=== PATIENT | female | born 1990 | race Caucasian/White ===

== ENCOUNTER 2016-08-18 16:25 | Emergency (ER) | payer OTHER ==
[2016-08-18 16:39] VITALS: BP 120/69; BMI 31.3
[2016-08-18] MEDS ORDERED: IBUPROFEN 400 MG TABLET (FP) PO ONE ×2 (17:18→17:23)
--- NOTE | 2016-08-18 17:54 | PDOC ---
History of Present Illness - General Chief Complaint: Cold Symptoms Stated Complaint: FEVER/SORE THROAT/BODY ACHE Time Seen by Provider: 08/18/16 17:18 History Source: Patient - History of Present Illness Timing/Duration: reports: yesterday Associated Symptoms: reports: earache, fever/chills, headache, muscle aches, sore throat. denies: cough, dizziness, facial pain, nasal congestion, shortness of breath, wheezing Past History - Past Medical History Allergies/Adverse Reactions: Allergies Allergy/AdvReac Type Severity Reaction Status Date / Time No Known Allergies Allergy Verified 08/18/16 16:39 Home Medications: Ambulatory Orders NK [No Known Home Medication] 08/18/16 Asthma: Yes Diabetes: No HTN: No Hypercholesterolemia: No Kidney Stones: No Liver Disease: No Suicide Attempt (Hx): No - Surgical History Abdominal Surgery: No - Reproductive History (#): 3 Para: 1 Cervical CA: No Dysfunctional Uterine Bleeding: No Ectopic : Yes Endometrial CA: No Polycystic Ovaries: No Therapeutic (s) & number: Yes (EPTOPIC) Tubal Ligation: No - Immunization History Immunization Up to Date: No - Psycho/Social/Smoking Cessation Hx Anxiety: No Suicidal Ideation: No Smoking Status: No Smoking History: Never smoked Have you smoked in the past 12 months: No Number of Cigarettes Smoked Daily: 0 Information on smoking cessation initiated: No Hx Alcohol Use: No Drug/Substance Use Hx: No Substance Use Type: None Hx Substance Use Treatment: No Respiratory Specific PMHX - Complaint Specific PMHX Angina: No Bronchitis: Yes Pneumonia: No Pulmonary Embolus: No TB (Tuberculosis): No Review of Systems - Review of Systems Constitutional: Yes: Fever, Malaise HEENTM: Yes: Ear Pain, Throat Pain Respiratory: No: Cough, Shortness of Breath, Wheezing ABD/GI: No: Diarrhea, Nausea, Vomiting Integumentary: No: Rash *Physical Exam - Vital Signs Last Vital Signs Temp Pulse Resp BP Pulse Ox 102.7 F H 130 H 18 120/69 98 08/18/16 16:37 08/18/16 16:37 08/18/16 16:37 08/18/16 16:37 08/18/16 16:37 - Physical Exam General Appearance: Yes: Appropriately Dressed, Other (ill appearing) HEENT: positive: Normal Voice Neck: positive: Supple. negative: Lymphadenopathy (R), Lymphadenopathy (L) Respiratory/Chest: positive: Lungs Clear, Normal Breath Sounds. negative: Respiratory Distress Cardiovascular: positive: S1, S2, Tachycardia Gastrointestinal/Abdominal: positive: Soft. negative: Tender Integumentary: positive: Dry, Warm Neurologic: positive: Fully Oriented, Alert, Normal Mood/Affect, Other (no e/o meningismus) ED Treatment Course - LABORATORY CBC & Chemistry Diagram: 08/18/16 18:50 08/18/16 18:50 - Medications Given in the ED: ED Medications Discontinued Medications Generic Name Dose Route Start Last Admin Trade Name Freq PRN Reason Stop Dose Admin Ibuprofen 800 mg 08/18/16 17:18 08/18/16 17:27 Motrin - PO 08/18/16 17:19 800 mg ONCE ONE Administration Medical Decision Making - Medical Decision Making 08/18/16 17:52 26-year-old male, denies any past medical history, here with malaise with body aches, diffuse headache, sore throat, left ear pain and fever that started suddenly yesterday. Taking Motrin and Tylenol with some improvement. No cough , sob, vomiting, diarrhea, rash, neck stiffness, photophobia or AMS as per boyfriend who is at bedside. No sick contacts or recent travel. Patient appears ill and febrile to 102 with tachycardia, rest of exam unremarkable. Most likely viral, rule out influenza, less likely meningitis. Antipyretic/ pain control in ED and reassess 08/18/16 17:53 08/18/16 18:37 08/18/16 18:43 Fever increased from 102 to 103 despite motrin in ED. IV placed w/ IVF and tylenol administration, labs sent. Will reassess. 08/18/16 18:59 08/18/16 19:01 08/18/16 20:14 Strep, flu and labs negative. Pt reports significant improvement in symptoms with improvement of vitals. Stable for discharge at this time with supportive treatment. Reasons to return discussed with patient 08/18/16 20:16 *DC/Admit/Observation/Transfer Diagnosis at time of Disposition: Viral syndrome - Discharge Dispostion Disposition: HOME Condition at time of disposition: Improved - Patient Instructions Printed Discharge Instructions: DI for Viral Syndrome Additional Instructions: Rest, drink plenty of fluids and take Tylenol or Motrin as needed for pain and/ or fever - Post Discharge Activity Work/School Note: Back to Work
[2016-08-18] MEDS ORDERED: ACETAMINOPHEN 325 MG TABLET (FP) PO ONE (18:26)
[2016-08-18] MEDS ORDERED: SODIUM CHLORIDE 1,000 ML IV STA (18:27)
[2016-08-18] MEDS ORDERED: ACETAMINOPHEN 325 MG TABLET (FP) ONE (18:44)
[2016-08-18] MEDS ORDERED: METOCLOPRAMIDE HCL INJECTION 10 MG/2 ML VIAL IVPB ONE (18:48)
[2016-08-18 18:55] LABS: URINE APPEARANCE CLEAR; URINE BILIRUBIN NEGATIVE (NEGATIVE); URINE BLOOD NEGATIVE (NEGATIVE); URINE COLOR LTYELLOW; URINE GLUCOSE (UA) NEGATIVE (NEGATIVE); URINE KETONE NEGATIVE (NEGATIVE); URINE NITRITE NEGATIVE (NEGATIVE); URINE PROTEIN NEGATIVE (NEGATIVE); URINE UROBILINOGEN NEGATIVE E.U./dl (0.2-1.0)
[2016-08-18 18:57] LABS: URINE LEUK ESTERASE TRACE (NEGATIVE)
[2016-08-18 18:59] LABS: URINE MUCUS RARE; URINE RBC 4 /hpf (0-3); URINE WBC 2 /hpf (3-5)
[2016-08-18 19:02] LABS: BASOPHIL 0.5 % (0-2.0); EOSINOPHIL 0.3 % (0-4.5); MCH 28.1 pg (25.7-33.7); MCHC 33.1 g/dl (32.0-36.0); MEAN PLT VOLUME 8.3 fl (7.5-11.1); NEUTROPHILS 86.4 % (42.8-82.8); PLATELET COUNT 259 K/MM3 (134-434); RDW 13.8 % (11.6-15.6); WHITE BLOOD COUNT 10.1 K/mm3 (4.0-10.0)
[2016-08-18] MEDS ORDERED: METOCLOPRAMIDE HCL INJECTION 10 MG/2 ML VIAL ONE (19:03)
[2016-08-18 19:30] LABS: ALBUMIN 3.8 g/dl (3.4-5.0); ALK PHOS 67 U/L (45-117); ANION GAP 9 (8-16); BILIRUBIN,TOTAL 0.3 mg/dL (0.2-1.0); CALCIUM 8.3 mg/dL (8.5-10.1); CO2 23 mmol/L (21-32); COCKROFT - GAULT 130.8065; CREATININE 0.7 mg/dL (0.55-1.02); GLUCOSE,RANDOM 88 mg/dL (74-106); SGOT/AST 9 U/L (15-37); SGPT/ALT 18 U/L (12-78); TOT PROT 7.1 g/dl (6.4-8.2)
[2016-08-18 19:54] VITALS: PULSE 100; TEMP 99.1
== END 2016-08-18 20:33 | disposition home or self-care (01) ==
LOC: JERFT 16:25
PROC: 3E0337Z Introduction of Electrolytic and Water Balance Substance into Peripheral Vein, Percutaneous Approach (ICD-10-PCS; principal; 2016-08-18)
PROC: 3E033GC Introduction of Other Therapeutic Substance into Peripheral Vein, Percutaneous Approach (ICD-10-PCS; 2016-08-18)
DX: B34.9 Viral infection, unspecified (principal)
CPT/HCPCS: 36415; 71020-TC; 80053; 81003; 81015; 84703; 85025; 87040; 87070; 87430; 87804; 99281-25

== ENCOUNTER 2018-01-06 17:45 | Inpatient (IN) | payer OTHER ==
[2018-01-06] MEDS ORDERED: AMPICILLIN - 2 GM in SODIUM CHLORIDE 100 ML IVPB ONE (18:00)
[2018-01-06] MEDS: ELECTROLYTE-148 SOLN 1,000 ML IV SCH ×2 (18:00→23:29)
[2018-01-06 18:13] VITALS: BMI 34.0
[2018-01-06] MEDS ORDERED: BUTORPHANOL TARTRATE 1 MG/ML VIAL IVPUSH ONE (18:30)
[2018-01-06] MEDS ORDERED: PROMETHAZINE HCL 25 MG/1 ML VIAL IVPB ONE (18:30)
[2018-01-06] MEDS ORDERED: BUTORPHANOL TARTRATE 1 MG/ML VIAL ONE (19:06)
[2018-01-06] MEDS ORDERED: PROMETHAZINE HCL 25 MG/1 ML VIAL ONE (19:06)
[2018-01-06 19:31] LABS: BASO % 0.4 % (0-2.0); EOS % 0.2 % (0-4.5); HEMATOCRIT 24.7 % (32.4-45.2); HEMOGLOBIN 8.1 GM/dL (10.7-15.3); LYMPH % 21.7 % (8-40); MCH 24.4 pg (25.7-33.7); MCHC 32.9 g/dl (32.0-36.0); MONO % 5.6 % (3.8-10.2); NEUT % 72.1 % (42.8-82.8); PLATELET COUNT 208 K/MM3 (134-434); RBC 3.34 M/mm3 (3.60-5.2); RDW 16.9 % (11.6-15.6); WHITE BLOOD COUNT 7.5 K/mm3 (4.0-10.0)
[2018-01-06 19:43] LABS: INR 1.09 (0.83-1.09); PROTHROMBIN TIME (PATIENT) 12.3 SEC (9.7-13.0)
[2018-01-06 19:45] LABS: ACTIVATED PTT 25.9 SECONDS (25.2-36.5)
[2018-01-06 20:04] LABS: ANION GAP 12 MMOL/L (8-16); BLOOD UREA NITROGEN 9 mg/dL (7-18); CALCIUM 8.7 mg/dL (8.5-10.1); CHLORIDE 109 mmol/L (98-107); CO2 19 mmol/L (21-32); CREATININE 0.5 mg/dL (0.55-1.02); GLUCOSE,RANDOM 75 mg/dL (74-106); SODIUM 140 mmol/L (136-145)
[2018-01-06] MEDS ORDERED: FENTANYL/BUPIVACAINE/NS/PF - PCEA - 50 ML DISP.SYRIN EP ONE (21:40)
[2018-01-06] MEDS ORDERED: AMPICILLIN SODIUM 1 GM VIAL ONE (21:57)
--- NOTE | 2018-01-06 22:16 | HP ---
Past Medical History - Admission History of Present Illness: 27 yo @ 39 4/7 wks by first trimester ultrasound, EDC 01/09/2018 complicated by: 1. Prior CD with successful Desires TOLAC 2. Left salpingectomy for ectopic 3. abnormal early GCT, normal GTT 4. Nephrolithiasis at 37 wks Patient presents with chief complaint of leakage of clear fluid at 4:45 PM . She reports contractions, she denies vaginal bleeding and reports movement. History Source: Patient Limitations to Obtaining History: No Limitations - Past Medical History Cardiovascular: No: HTN Pulmonary: Yes: Asthma Gastrointestinal: No: GERD ...: 4 ...Para: 2 ...Term: 1 ...: 1 ...Spon : 1 ...Induced : 0 ...Multiple Gestation: 0 ...EDC by Sono: 01/09/18 Heme/Onc: No: Anemia - Past Surgical History Hx Myomectomy: No Hx Transabdominal Cerclage: No Additional Surgical History: LS L salpingectomy for ectopic - Smoking History Smoking history: Never smoked Have you smoked in the past 12 months: No Aproximately how many cigarettes per day: 0 - Alcohol/Substance Use Hx Alcohol Use: No - Social History History of Recent Travel: No Home Medications - Allergies Allergies/Adverse Reactions: Allergies Allergy/AdvReac Type Severity Reaction Status Date / Time No Known Allergies Allergy Verified 01/06/18 18:19 - Home Medications Home Medications: Ambulatory Orders NK [No Known Home Medication] 01/06/18 Family Disease History - Family Disease History Family History: Denies Review of Systems - Review of Systems Constitutional: reports: No Symptoms Neck: reports: No Symptoms Respiratory: reports: No Symptoms Gastrointestinal: reports: No Symptoms Genitourinary: reports: No Symptoms Integumentary: reports: No Symptoms Neurological: reports: No Symptoms Endocrine: reports: No Symptoms Hematology/Lymphatic: reports: No Symptoms Psychiatric: reports: No Symptoms Physical Exam - Maternity Vital Signs: Vital Signs Temperature 98.7 F 01/06/18 21:00 Pulse Rate 82 01/06/18 21:00 Respiratory Rate 20 01/06/18 21:00 Blood Pressure 130/66 01/06/18 21:00 O2 Sat by Pulse Oximetry (%) Constitutional: Yes: Well Nourished, No Distress, Calm Neck: Yes: Tenderness Lungs: Clear to auscultation - Abdominal Exam/OB Fundal Height: 40 Number of Fetuses: Single Presentation: Vertex Contractions: Yes Regularity: Regular Intensity: Mod/Strong Heart Rate (range): 130 Category: I Accelerations: Non-Uniform Decelerations: None - Vaginal Exam/OB Vaginal Bleediing: No Speculum Exam: No Dilatation (cm): 5 Effacement (%): 80 Amniotic Membrane Status: Ruptured Station: -2 - Physical Exam Psychiatric: Yes: Alert, Oriented - Labs Lab Results: CBC, BMP 01/06/18 19:00 01/06/18 19:00 PNL: A positive, antibody negative; RPR NR; HBS Ag neg; HCV neg; HIV neg; early GCT elevated --> normal early GTT; normal 26+ wk GTT; Varicella immune, Rubella immune, GBS positive (No PCN allergy) Hemorrhage Risk Assessment - Risk Factors Medium Risk Factors: Yes: Prior , uterine surgery,or multiple laparotomies High Risk Factors: Yes: None Risk Score: 1 Risk Level: Medium Risk Assessment/Plan 27 yo @ 39 4/7 wks, SROM, active labor 1. Admit to L&D 2. Consents reviewed and signed. Reviewed risks of Trial of Labor after Delivery, including but not limited to: - Risk of failed trial of labor resulting in a repeat delivery in approximately 20-40% of patients who attempt - Risk of rupture of uterus resulting in emergency delivery (0.2 - 1.5 % risk) - Risk of , neurologic compromise - Rare risk of maternal 3. GBS positive - will start ampicillin 4. Category I FHT 5. Will offer pain medication upon patient's request 6. Will proceed with expectant management
[2018-01-06] MEDS ORDERED: OXYTOCIN 20 UNITS in 0.9% NS 20 UNIT/1,000 ML INFUS.BAG IV ONE (22:31)
[2018-01-06] MEDS ORDERED: LIDOCAINE HCL 1% PRESERVATIVE FREE - 30ML VIAL ONE (22:31)
[2018-01-06] MEDS: FENTANYL/BUPIVACAINE/NS/PF - PCEA - 50 ML DISP.SYRIN EP SCH (22:40)
[2018-01-06] MEDS: AMPICILLIN - 1 GM in DEXTROSE 5%-WATER - 50 ML IVPB SCH (22:40)
[2018-01-06] MEDS ORDERED: NALOXONE HCL 0.4 MG/ML VIAL IVPUSH PRN (22:56)
[2018-01-07] MEDS ORDERED: OXYTOCIN 30 UNITS in 0.9% NS 30 UNIT/500 ML INFUS.BAG IVPB ONE (00:19)
[2018-01-07] MEDS ORDERED: OXYTOCIN 30 UNITS in 0.9% NS 30 UNIT/500 ML INFUS.BAG IVPB SCH (00:30)
[2018-01-07] MEDS ORDERED: AMPICILLIN SODIUM 1 GM VIAL ONE ×2 (02:03→06:33)
[2018-01-07] MEDS: AMPICILLIN - 1 GM in DEXTROSE 5%-WATER - 50 ML IVPB SCH ×2 (02:07→06:30)
[2018-01-07] MEDS ORDERED: FENTANYL/BUPIVACAINE/NS/PF - PCEA - 50 ML DISP.SYRIN EP ONE ×2 (03:12→07:37)
--- NOTE | 2018-01-07 04:17 | PN ---
Ante-Partal Exam - Subjective Subjective: Patient reports increased pressure Vital Signs: Vital Signs Temperature 99.0 F 01/07/18 02:59 Pulse Rate 83 01/07/18 03:15 Respiratory Rate 18 01/07/18 03:15 Blood Pressure 122/74 01/07/18 03:15 O2 Sat by Pulse Oximetry (%) 100 01/07/18 03:15 Bleeding: Yes (bloody show) Bleeding Description: Mild Headache: No Visual changes: No Right upper quadrant pain: No - Contractions Contractions: Yes Regularity: Regular Intensity: Moderate Monitor Mode: External - Exam during Labor Heart Rate: 120 Variability: Moderate Category: I Monitor Accelerations: Present Monitor Decelerations: None Exam: Vaginal Dilatation (cm): 9 Effacement (%): 100 Amniotic Membrane Status: Ruptured Amniotic Fluid: Blood Stained Station: 0 - Intrapartum Hemorrhage Risk Medium Risk Factors: None High Risk Factors: None Risk Score: 0 Risk Level: Low Risk - Assessment/Plan Assessment/Plan: 27 yo @39+ wks active labor 1. Good cervical change 2. GBS positive, on penicillin 3. Category I FHT 4. Pain controlled with epidural 5. Will proceed with expectant management
[2018-01-07] MEDS: FENTANYL/BUPIVACAINE/NS/PF - PCEA - 50 ML DISP.SYRIN EP SCH (07:47)
--- NOTE | 2018-01-07 08:46 | PN ---
Delivery - Delivery Vaginal Delivery: V-Barrett Type of Anesthesia: Epidural Episiotomy/Laceration: None EBL (cc): 100 Delivery, Single - Stages of Labor Date 2nd Stage Initiated: 01/07/18 Time 2nd Stage Initiated: 06:30 Date of Delivery: 01/07/18 Time of Delivery: 08:34 Date Placenta Delivered: 01/07/18 Time Placenta Delivered: 08:37 Placenta: Yes: Spontaneous - Condition of Infant Gender: Male Position: Left, OA Total Hours ROM (Hrs/Mins): 15 hours 52 minutes - 1 Minute Total Score: 9 5 Minutes Total Score: 9 - Feeding Plan Initial Plan: Elected not to breastfeed exclusively throughout hospitalization Remarks - Remarks Remarks: Patient progressed to fully dilated and at 0834 via delivered a viable male in DAMIAN position, APGARs 9,9. Weight and length unknown at this time. Head delivered spontaneously followed by shoulders and body without difficulty. with spontaneous cry and placed on mother's abdomen. Nose and mouth was bulb suctioned. Cord was clamped and cut. Perineum and vagina examined, no laceration noted Placenta was delivered spontaneously and intact. 20 units of pitocin in 1 L IVF was given. All counts correct x 2. Mother and stable in LDR. EBL 100cc.
[2018-01-07] MEDS ORDERED: BENZOCAINE 20% 57 GM BOTTLE TP PRN (08:54)
[2018-01-07] MEDS ORDERED: BENZOCAINE 28 GM HEMORRHOIDAL OINTMENT TP PRN (08:54)
[2018-01-07] MEDS ORDERED: BISACODYL 10 MG SUPP.RECT RC PRN (08:54)
[2018-01-07] MEDS ORDERED: METHYLERGONOVINE MALEATE 0.2 MG/1 ML AMP IM PRN (08:54)
[2018-01-07] MEDS ORDERED: WITCH HAZEL 50% (TUCKS) 40 PAD/JAR PAD TP PRN (08:54)
[2018-01-07] MEDS ORDERED: oxyCODONE HCL 5 MG TABLET PO PRN (08:54)
[2018-01-07] MEDS ORDERED: OXYTOCIN 20 UNITS in 0.9% NS 20 UNIT/1,000 ML INFUS.BAG IV SCH (09:00)
[2018-01-07] MEDS: FERROUS SO4 325 MG TABLET (FP) PO SCH ×2 (12:34→17:00)
[2018-01-07] MEDS: PRENATAL VITAMINS W/ FOLIC ACID TABLET (FP) PO SCH (12:35)
[2018-01-07] MEDS: IBUPROFEN 600 MG TABLET (FP) PO PRN (14:50)
[2018-01-07] MEDS: ACETAMINOPHEN 325 MG TABLET (FP) PO PRN (14:50)
[2018-01-08 07:04] LABS: BASO % 0.2 % (0-2.0); LYMPH % 24.3 % (8-40); MCH 24.2 pg (25.7-33.7); MEAN CELL VOLUME 75.6 fl (80-96); MEAN PLT VOLUME 9.1 fl (7.5-11.1); MONO % 6.2 % (3.8-10.2); NEUT % 68.3 % (42.8-82.8); PLATELET COUNT 158 K/MM3 (134-434); RBC 2.78 M/mm3 (3.60-5.2); RDW 16.9 % (11.6-15.6); WHITE BLOOD COUNT 8.5 K/mm3 (4.0-10.0)
[2018-01-08 07:38] LABS: HEMOGLOBIN 6.7 GM/dL (10.7-15.3)
--- NOTE | 2018-01-08 08:26 | PN ---
Progress Note (short form) - Note Progress Note: ppd1 , anemia , asymptomatic, no dizziness , no active vaginal bleeding CBC, BMP 01/08/18 06:00 01/06/18 19:00 Last Vital Signs Temp Pulse Resp BP Pulse Ox 97.9 F 96 H 18 90/51 99 01/08/18 06:00 01/08/18 06:00 01/08/18 06:00 01/08/18 06:00 01/07/18 09:30 abdomen soft, nodistension, no cva uterus firm, non tender lochia mild. perineum clean no calf tenderness plan ambulate , iron ,vit anemia symptomatic, blood transfusion discussed wants to take iron, vit
[2018-01-08] MEDS: FERROUS SO4 325 MG TABLET (FP) PO SCH ×3 (08:56→17:41)
[2018-01-08] MEDS: PRENATAL VITAMINS W/ FOLIC ACID TABLET (FP) PO SCH (09:01)
[2018-01-08] MEDS: IBUPROFEN 600 MG TABLET (FP) PO PRN (11:39)
[2018-01-08] MEDS: ACETAMINOPHEN 325 MG TABLET (FP) PO PRN (11:39)
[2018-01-08] MEDS ORDERED: SENNOSIDES/DOCUSATE COMBO (SENNA PLUS) TABLET (UD) PO PRN (22:00)
[2018-01-09 07:31] LABS: BASO % 0.5 % (0-2.0); EOS % 1.2 % (0-4.5); HEMATOCRIT 25.1 % (32.4-45.2); HEMOGLOBIN 8.1 GM/dL (10.7-15.3); LYMPH % 26.9 % (8-40); MCH 24.1 pg (25.7-33.7); MCHC 32.1 g/dl (32.0-36.0); MEAN PLT VOLUME 8.5 fl (7.5-11.1); MONO % 4.8 % (3.8-10.2); NEUT % 66.6 % (42.8-82.8); PLATELET COUNT 200 K/MM3 (134-434); RBC 3.35 M/mm3 (3.60-5.2); RDW 17.2 % (11.6-15.6); WHITE BLOOD COUNT 9.8 K/mm3 (4.0-10.0)
[2018-01-09] MEDS: FERROUS SO4 325 MG TABLET (FP) PO SCH ×2 (07:42→13:07)
--- NOTE | 2018-01-09 07:53 | DS ---
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 Vital Signs: Vital Signs Temperature 98 F 01/08/18 22:00 Pulse Rate 90 01/08/18 22:00 Respiratory Rate 18 01/08/18 22:00 Blood Pressure 130/81 01/08/18 22:00 O2 Sat by Pulse Oximetry (%) 99 01/07/18 09:30 Constitutional: Yes: Well Nourished, No Distress, Calm Eyes: Yes: WNL, Conjunctiva Clear, EOM Intact HENT: Yes: WNL, Atraumatic, Normocephalic Neck: Yes: WNL, Supple, Trachea Midline Cardiovascular: Yes: WNL, Regular Rate and Rhythm Respiratory: Yes: WNL, Regular, CTA Bilaterally Gastrointestinal: Yes: WNL, Normal Bowel Sounds, Soft Renal/: Yes: WNL Pelvis: Yes: WNL External Genitalia: Yes: Normal Vaginal Exam: Yes: Normal ....Post : Yes: Uterus firm, Uterus non-tender Breast(s): Yes: WNL Musculoskeletal: Yes: WNL Extremities: Yes: WNL Integumentary: Yes: WNL Neurological: Yes: WNL, Alert, Oriented ...Motor Strength: WNL Psychiatric: Yes: WNL, Alert, Oriented Labs: CBC, BMP 01/09/18 07:12 01/06/18 19:00 Delivery - Delivery Vaginal Delivery: V-Barrett Type of Anesthesia: Epidural Episiotomy/Laceration: None EBL (cc): 100 Delivery, Single - Stages of Labor Date 1st Stage Initiatied: 01/06/18 Time 1st Stage Initiated: 17:00 Date 2nd Stage Initiated: 01/07/18 Time 2nd Stage Initiated: 06:30 Date of Delivery: 01/07/18 Time of Delivery: 08:34 Time Placenta Delivered: 08:37 Placenta: Yes: Spontaneous - 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 Penile Circumcision Hospital Course: unremarkable Condition: Good - Instructions Diet, Activity, Other Instructions: return to office in 4-6 weeks call for appt. If fever, pain or heavy bleeding call md. Referrals: Estela Farfan MD [Staff Physician] - Disposition: HOME - Home Medications Comprehensive Discharge Medication List: Ambulatory Orders NK [No Known Home Medication] 01/06/18
[2018-01-09] MEDS: PRENATAL VITAMINS W/ FOLIC ACID TABLET (FP) PO SCH (09:32)
[2018-01-09 13:09] VITALS: BP 137/67; PULSE 80; TEMP 98.2
== END 2018-01-09 12:45 | disposition home or self-care (01) | DRG 775 ==
LOC: JLDR 17:45 → J3W 01-07 10:20
PROVIDERS: ADMIT Obstetrics & Gynecology; ATTEND Obstetrics & Gynecology
PROC: 10E0XZZ Delivery of Products of Conception, External Approach (ICD-10-PCS; principal; 2018-01-07)
DX: O34.211 Maternal care for low transverse scar from previous cesarean delivery (principal); O99.824 Streptococcus B carrier state complicating childbirth; O34.29 Maternal care due to uterine scar from other previous surgery; O99.013 Anemia complicating pregnancy, third trimester; D64.9 Anemia, unspecified; Z37.0 Single live birth; Z3A.39 39 weeks gestation of pregnancy
CPT/HCPCS: 36415; 59409; 80048; 85025; 85610; 85730; 86593; 86850; 86900; 86901; 87389

== ENCOUNTER 2023-06-03 16:23 | Emergency (ER) | payer OTHER ==
[2023-06-03 16:35] VITALS: RESP 18; BMI 30.7
[2023-06-03] MEDS ORDERED: ACETAMINOPHEN INJECTION 100 ML IVPB ONE (18:18)
[2023-06-03] MEDS ORDERED: FAMOTIDINE 20 MG/50 ML IVPB 20 MG/50 ML MG IVPB ONE (18:18)
[2023-06-03] MEDS ORDERED: ONDANSETRON 4 MG/2 ML VIAL ONE (18:18)
[2023-06-03 18:20] LABS: BASO % 0.7 % (0-2.0); EOS % 2.3 % (0-4.5); HEMATOCRIT 35.2 % (32.4-45.2); HEMOGLOBIN 12.2 GM/dL (10.7-15.3); LYMPH % 15.8 % (8-40); MCH 28.9 pg (25.7-33.7); MCHC 34.8 g/dl (32.0-36.0); MEAN CELL VOLUME 83.3 fl (80-96); MEAN PLT VOLUME 7.7 fl (7.5-11.1); MONO % 5.9 % (3.8-10.2); NEUT % 75.3 % (42.8-82.8); PLATELET COUNT 502 10^3/uL (134-434); RBC 4.23 M/mm3 (3.60-5.2); RDW 14.7 % (11.6-15.6); WHITE BLOOD COUNT 9.4 K/mm3 (4.0-10.0)
[2023-06-03] MEDS: SODIUM CHLORIDE 0.9% 500 ML INFUS.BAG IV ONE (18:20)
[2023-06-03] MEDS: ONDANSETRON 4 MG/2 ML VIAL IVPUSH ONE (18:20)
[2023-06-03] MEDS: ACETAMINOPHEN 1000 MG/100 ML BAG IVPB ONE (18:20)
[2023-06-03] MEDS: FAMOTIDINE 20 MG/50 ML IVPB 20 MG/50 ML MG IVPB ONE (18:20)
[2023-06-03 19:01] LABS: CHLORIDE 103 mmol/L (98-107); SODIUM 127 mmol/L (136-145)
[2023-06-03 19:03] LABS: CALCIUM 9.2 mg/dL (8.5-10.1)
[2023-06-03 19:04] LABS: ALBUMIN 3.5 g/dl (3.4-5.0); BLOOD UREA NITROGEN 6.2 mg/dL (7-18); CO2 25 mmol/L (21-32); GLUCOSE,RANDOM 86 mg/dL (74-106)
[2023-06-03 19:07] LABS: CREATININE 0.7 mg/dL (0.55-1.3)
[2023-06-03 19:08] LABS: BILIRUBIN,TOTAL 1.1 mg/dL (0.2-1)
[2023-06-03 19:10] LABS: ALK PHOS 344 U/L (45-117)
[2023-06-03 19:24] LABS: ANION GAP -1 mmol/L (4-13); POTASSIUM > 10.0 mmol/L (3.5-5.1); SGOT/AST 130 U/L (15-37); SGPT/ALT 66 U/L (13-61)
[2023-06-03 19:29] LABS: PH,URINE 6.5 (5.0-8.0); URINE APPEARANCE CLEAR; URINE BILIRUBIN NEGATIVE (NEGATIVE); URINE COLOR DK YELLOW; URINE GLUCOSE (UA) NEGATIVE (NEGATIVE); URINE KETONE TRACE (NEGATIVE); URINE LEUK ESTERASE NEGATIVE (NEGATIVE); URINE NITRITE NEGATIVE (NEGATIVE); URINE PROTEIN NEGATIVE (NEGATIVE); URINE UROBILINOGEN 0.2 mg/dL (0.2-1.0)
[2023-06-03 21:24] LABS: POTASSIUM 3.8 mmol/L (3.5-5.1)
[2023-06-03 21:26] LABS: ALBUMIN 2.9 g/dl (3.4-5.0); CALCIUM 8.4 mg/dL (8.5-10.1)
[2023-06-03 21:27] LABS: BLOOD UREA NITROGEN 5.7 mg/dL (7-18)
[2023-06-03 21:29] LABS: CREATININE 0.5 mg/dL (0.55-1.3)
[2023-06-03 21:31] LABS: BILIRUBIN,TOTAL 0.5 mg/dL (0.2-1)
[2023-06-03] MEDS ORDERED: MAG HYDROX/AL HYDROX/SIMETH 30 ML UNIT-DOSE CUP ONE (21:47)
[2023-06-03] MEDS ORDERED: KETOROLAC TROMETHAMINE 30 MG/1 ML VIAL ONE (21:47)
[2023-06-03] MEDS: MAG HYDROX/AL HYDROX/SIMETH 30 ML UNIT-DOSE CUP PO ONE (21:52)
[2023-06-03] MEDS: KETOROLAC TROMETHAMINE 30 MG/1 ML VIAL IVPUSH ONE (21:52)
[2023-06-03 21:58] VITALS: BP 110/64; PULSE 85; TEMP 98.1
[2023-06-03 22:00] LABS: TOT PROT 6.7 g/dl (6.4-8.2)
[2023-06-04] MEDS ORDERED: morphine SULFATE 4 MG/ML VIAL ONE (00:48)
[2023-06-04] MEDS: morphine CARPU-JECT 4 MG/1 ML DISP.SYRIN IVPUSH ONE (00:58)
== END 2023-06-04 01:27 | disposition short-term general hospital (02) ==
LOC: JER 16:23
PROC: 3E033GC Introduction of Other Therapeutic Substance into Peripheral Vein, Percutaneous Approach (ICD-10-PCS; principal; 2023-06-03)
PROC: 3E033GC Introduction of Other Therapeutic Substance into Peripheral Vein, Percutaneous Approach (ICD-10-PCS; 2023-06-03)
PROC: 3E033NZ Introduction of Analgesics, Hypnotics, Sedatives into Peripheral Vein, Percutaneous Approach (ICD-10-PCS; 2023-06-03)
PROC: 3E0333Z Introduction of Anti-inflammatory into Peripheral Vein, Percutaneous Approach (ICD-10-PCS; 2023-06-03)
PROC: 3E033GC Introduction of Other Therapeutic Substance into Peripheral Vein, Percutaneous Approach (ICD-10-PCS; 2023-06-04)
DX: R10.10 Upper abdominal pain, unspecified (principal); R10.13 Epigastric pain; R19.7 Diarrhea, unspecified; R11.2 Nausea with vomiting, unspecified; R16.0 Hepatomegaly, not elsewhere classified; Z20.822 Contact with and (suspected) exposure to COVID-19
CPT/HCPCS: 0241U-QW; 36415; 74177-TC; 76705-TC; 80053; 81003; 83690; 84703; 85025; 87086; 99285-25; J0131; Q9967